=== PATIENT | female | born 1995 | race Caucasian/White ===

== ENCOUNTER 2020-10-07 17:42 | Inpatient (IN) | payer OTHER ==
[~2020-10-07] VITALS: Ht 162.6 cm; Wt 68.0 kg
[2020-10-07] MEDS ORDERED: METOCLOPRAMIDE 5 MG/ML, 2ML ONE (17:59)
[2020-10-07] MEDS ORDERED: DIPHENHYDRAMINE 50 MG/ML, 1ML ONE ×2 (17:59→23:45)
[2020-10-07] MEDS ORDERED: SODIUM CHLORIDE FLUSH 10ML SYR IVF ONE (18:00)
[2020-10-07] MEDS ORDERED: METOCLOPRAMIDE 5 MG/ML, 2ML IVPush ONE (18:00)
[2020-10-07] MEDS ORDERED: DIPHENHYDRAMINE 50 MG/ML, 1ML IVPush ONE (18:00)
[2020-10-07] MEDS ORDERED: SODIUM CHLORIDE 0.9% 1,000ML IVBOLUS ONE ×2 (18:00→23:00)
[2020-10-07 18:20] LABS: BASOPHILS % (AUTO) 1 % (0-1); EOSINOPHILS % (AUTO) 0 % (1-7); LYMPHOCYTES % (AUTO) 11 % (22-44); MEAN CORPUSCULAR HEMOGLOBIN 22.2 pg (27.0-34.8); MEAN CORPUSCULAR HGB CONC 31.3 g/dL (32.4-35.8); MEAN PLATELET VOLUME 7.7 fL (7.4-10.4); MONOCYTES % (AUTO) 7 % (2-9); NEUTROPHILS % (AUTO) 81 % (42-75); PLATELET COUNT 420 x10^3/uL (130-400); RED BLOOD COUNT 4.56 x10^6/uL (3.82-5.3); RED CELL DISTRIBUTION WIDTH 18.8 % (9.6-15.2)
[2020-10-07 18:22] LABS: ALBUMIN 3.5 g/dL (3.4-5.0); ANION GAP 8 mmol/L (5-15); CALCIUM 8.9 mg/dL (8.5-10.1); CHLORIDE 107 mmol/L (98-107); CREATININE 1.06 mg/dL (0.55-1.02)
[2020-10-07 18:27] LABS: INTERNATIONAL NORMALIZED RATIO 1.04 (0.93-1.1); PROTHROMBIN TIME 11.1 Seconds (9.6-11.5)
[2020-10-07] MEDS ORDERED: PLEASE ENTER HEIGHT AND WEIGHT MC SCH (18:30)
[2020-10-07] MEDS ORDERED: PLEASE ENTER ALLERGIES MC SCH (18:30)
[2020-10-07 18:56] LABS: ANISOCYTOSIS 1+; OVALOCYTES 1+
[2020-10-07 19:00] LABS: MICROCYTOSIS 2+
--- NOTE | 2020-10-07 19:00 | NUR ---
PT TRANSPORTED TO CT.
[2020-10-07 19:01] LABS: <PLATELET ESTIMATE> INCREASED; <PLT MORPHOLOGY> NORMAL PLT MORPH
[2020-10-07] MEDS ORDERED: KETOROLAC 30 MG/1 ML ONE (20:15)
--- NOTE | 2020-10-07 20:21 | NUR ---
MEDICATED PER MAR. PT STATES SHE FEELS BETTER BUT HEAD STILL HURTS. VSS. PT'S DAD AT BEDSIDE.
[2020-10-07] MEDS ORDERED: KETOROLAC 30 MG/1 ML IVPush ONE (20:30)
[2020-10-07] MEDS ORDERED: DEXAMETHASONE 4 MG/ML, 1ML IVPush ONE (21:30)
--- NOTE | 2020-10-07 22:01 | NUR ---
ASSISTED PT TO [facility].
--- NOTE | 2020-10-07 22:17 | NUR ---
PT TRANSPORTED TO CT.
[2020-10-07] MEDS ORDERED: OMNIPAQUE 350 MG/ML, 75ML BOTTLE ONE (22:32)
--- NOTE | 2020-10-07 22:43 | NUR ---
PT SLEEPING IN NAD, EVEN AND UNLABORED RESPIRATIONS NOTED. VSS.
--- NOTE | 2020-10-07 23:06 | NUR ---
REPORT TO ANAHI MARRUFO.
[2020-10-07] MEDS ORDERED: DEXAMETHASONE 4 MG/ML, 1ML ONE (23:12)
[2020-10-07] MEDS ORDERED: SODIUM CHLORIDE FLUSH 10ML SYR IVF PRN (23:30)
[2020-10-08] MEDS ORDERED: DIPHENHYDRAMINE 50 MG/ML, 1ML IVPush ONE
[2020-10-08] MEDS ORDERED: DOCUSATE 100 MG CAPSULE PO PRN (00:30)
[2020-10-08] MEDS ORDERED: MAGNESIUM SULFATE PMX 2GM/50ML 50 ML IV ONE (00:30)
--- NOTE | 2020-10-08 00:45 | NUR ---
ATTEMPTED TO AMBULATE PT TO COMMODE. PT LEGS VERY WEAK. PT ASSISTED BACK TO [facility]
[2020-10-08 01:27] VITALS: BP 116/74
[2020-10-08 04:09] LABS: BASOPHILS % (AUTO) 0 % (0-1); EOSINOPHILS % (AUTO) 0 % (1-7); LYMPHOCYTES % (AUTO) 5 % (22-44); MEAN CORPUSCULAR HEMOGLOBIN 22.3 pg (27.0-34.8); MEAN CORPUSCULAR HGB CONC 31.2 g/dL (32.4-35.8); MEAN PLATELET VOLUME 7.5 fL (7.4-10.4); MONOCYTES % (AUTO) 1 % (2-9); NEUTROPHILS % (AUTO) 94 % (42-75); PLATELET COUNT 351 x10^3/uL (130-400); RED BLOOD COUNT 4.47 x10^6/uL (3.82-5.3); RED CELL DISTRIBUTION WIDTH 18.9 % (9.6-15.2)
[2020-10-08 04:20] LABS: ANION GAP 9 mmol/L (5-15); CALCIUM 8.7 mg/dL (8.5-10.1); CHLORIDE 107 mmol/L (98-107); CREATININE 1.07 mg/dL (0.55-1.02)
[2020-10-08] MEDS ORDERED: DIPHENHYDRAMINE 50 MG/ML, 1ML IVPush PRN (04:30)
[2020-10-08 08:02] LABS: MICROSCOPIC NOT IND
[2020-10-08 08:09] LABS: AMPHETAMINE SCREEN, URINE Negative (Negative); BARBITURATE SCREEN, URINE Negative (Negative); BENZODIAZEPINE SCREEN, URINE Negative (Negative); CANNABINOID SCREEN, URINE Positive (Negative); COCAINE SCREEN, URINE Negative (Negative); METHADONE SCREEN, URINE Negative (Negative); OPIATE SCREEN, URINE Negative (Negative)
[2020-10-08] MEDS: KETOROLAC 30 MG/1 ML IV PRN ×2 (09:27→17:04)
[2020-10-08] MEDS: DEXAMETHASONE 4 MG TABLET PO SCH ×3 (09:27→20:43)
[2020-10-08] MEDS ORDERED: VALPROATE SODIUM 1,000 MG in DEXTROSE 5% 100 ML IV ONE (10:00)
[2020-10-08 14:36] VITALS: BP 113/74
[2020-10-08] MEDS ORDERED: GADOTERATE 7.5 MMOL/15ML SYR ONE (18:25)
[2020-10-08 20:22] VITALS: BP 114/72
[2020-10-08] MEDS: VALPROATE SODIUM 500 MG in DEXTROSE 5% 100 ML IV SCH (21:28)
[2020-10-09 02:00] VITALS: BP 118/78
[2020-10-09] MEDS: DEXAMETHASONE 4 MG TABLET PO SCH ×2 (03:17→09:01)
[2020-10-09 05:01] LABS: BASOPHILS % (AUTO) 0 % (0-1); EOSINOPHILS % (AUTO) 0 % (1-7); LYMPHOCYTES % (AUTO) 4 % (22-44); MEAN CORPUSCULAR HEMOGLOBIN 22.3 pg (27.0-34.8); MEAN CORPUSCULAR HGB CONC 31.4 g/dL (32.4-35.8); MEAN PLATELET VOLUME 7.8 fL (7.4-10.4); MONOCYTES % (AUTO) 3 % (2-9); NEUTROPHILS % (AUTO) 93 % (42-75); PLATELET COUNT 394 x10^3/uL (130-400); RED CELL DISTRIBUTION WIDTH 18.9 % (9.6-15.2)
[2020-10-09 05:17] LABS: CHLORIDE 106 mmol/L (98-107)
[2020-10-09 05:26] LABS: ALANINE AMINOTRANSFERASE 15 U/L (12-78); ALKALINE PHOSPHATASE 96 U/L (45-117); ANION GAP 8 mmol/L (5-15); BILIRUBIN,TOTAL 0.6 mg/dL (0.2-1.0); C-REACTIVE PROTEIN, QUANT 0.07 mg/dL (0.02-0.49); CALCIUM 8.8 mg/dL (8.5-10.1); CREATININE 0.87 mg/dL (0.55-1.02); TOTAL PROTEIN 7.1 g/dL (6.4-8.2)
[2020-10-09] MEDS: PANTOPRAZOLE 40MG TABLET PO SCH (05:38)
[2020-10-09] MEDS ORDERED: ASPIRIN 325 MG TABLET PO SCH (09:00)
[2020-10-09] MEDS: SODIUM CHLORIDE 0.9% 1,000 ML IV SCH ×2 (09:02→18:00)
[2020-10-09] MEDS: VALPROATE SODIUM 500 MG in DEXTROSE 5% 100 ML IV SCH ×2 (09:02→22:45)
[2020-10-09 10:46] VITALS: BP 107/73
[2020-10-09] MEDS ORDERED: GADOTERATE 7.5 MMOL/15 ML VIAL ONE (12:03)
[2020-10-09 15:39] VITALS: BP 117/73
[2020-10-09 16:55] VITALS: BP 115/74
[2020-10-09 19:46] VITALS: BP 109/70
[2020-10-09 20:00] VITALS: BP 115/70
[2020-10-10] VITALS (12 sets, daily range): BP systolic 11–118; BP diastolic 68–85
[2020-10-10] MEDS: ASPIRIN 81 MG TABLET EC PO SCH (04:42)
[2020-10-10] MEDS: PANTOPRAZOLE 40MG TABLET PO SCH (04:42)
[2020-10-10] MEDS: SODIUM CHLORIDE 0.9% 1,000 ML IV SCH ×2 (04:42→15:59)
[2020-10-10 06:05] LABS: BASOPHILS % (AUTO) 0 % (0-1); EOSINOPHILS % (AUTO) 0 % (1-7); LYMPHOCYTES % (AUTO) 11 % (22-44); MEAN CORPUSCULAR HEMOGLOBIN 22.2 pg (27.0-34.8); MEAN CORPUSCULAR HGB CONC 30.9 g/dL (32.4-35.8); MEAN PLATELET VOLUME 7.7 fL (7.4-10.4); MONOCYTES % (AUTO) 7 % (2-9); NEUTROPHILS % (AUTO) 82 % (42-75); PLATELET COUNT 291 x10^3/uL (130-400); RED BLOOD COUNT 4.06 x10^6/uL (3.82-5.3); RED CELL DISTRIBUTION WIDTH 18.7 % (9.6-15.2)
[2020-10-10 06:06] LABS: HCT (SEDRATE) 28.6 % (34.6-47.8)
[2020-10-10 06:18] LABS: ANION GAP 5 mmol/L (5-15); CALCIUM 8.4 mg/dL (8.5-10.1); CHLORIDE 105 mmol/L (98-107)
[2020-10-10 06:31] LABS: CHOL/HDL RATIO 2.3; CHOLESTEROL, TOTAL 156 mg/dL (140-239); CREATININE 0.81 mg/dL (0.55-1.02); HDL CHOL % 43 % (28-40); HDL CHOLESTEROL (DIRECT) 67 mg/dL (40-60); LDL CHOLESTEROL,CALCULATED 71 mg/dL (54-169); LDL/HDL RATIO 1.1 (0.5-3.0); TRIGLYCERIDES 88 mg/dL (50-200); VLDL CHOLESTEROL 18 mg/dL (0-25)
[2020-10-10] MEDS: CLOPIDOGREL 75 MG TABLET PO SCH (08:50)
[2020-10-10] MEDS: ACETAMINOPHEN 325 MG TABLET PO PRN (08:51)
[2020-10-10] MEDS: VALPROATE SODIUM 500 MG in DEXTROSE 5% 100 ML IV SCH ×2 (10:02→20:15)
[2020-10-10] MEDS: ATORVASTATIN 20 MG TABLET PO SCH (20:15)
[2020-10-11] VITALS (10 sets, daily range): BP systolic 106–123; BP diastolic 68–86
[2020-10-11] MEDS: SODIUM CHLORIDE 0.9% 1,000 ML IV SCH ×3 (01:08→23:28)
[2020-10-11] MEDS: ASPIRIN 81 MG TABLET EC PO SCH (05:29)
[2020-10-11] MEDS: PANTOPRAZOLE 40MG TABLET PO SCH (05:29)
[2020-10-11 08:33] LABS: BASOPHILS % (AUTO) 0 % (0-1); EOSINOPHILS % (AUTO) 1 % (1-7); LYMPHOCYTES % (AUTO) 29 % (22-44); MEAN CORPUSCULAR HEMOGLOBIN 22.7 pg (27.0-34.8); MEAN CORPUSCULAR HGB CONC 31.7 g/dL (32.4-35.8); MEAN PLATELET VOLUME 7.8 fL (7.4-10.4); MONOCYTES % (AUTO) 10 % (2-9); NEUTROPHILS % (AUTO) 60 % (42-75); PLATELET COUNT 295 x10^3/uL (130-400); RED BLOOD COUNT 4.27 x10^6/uL (3.82-5.3)
[2020-10-11 08:34] LABS: ANION GAP 5 mmol/L (5-15); CHLORIDE 106 mmol/L (98-107); CREATININE 0.78 mg/dL (0.55-1.02)
[2020-10-11 08:37] LABS: CALCIUM 8.3 mg/dL (8.5-10.1)
[2020-10-11] MEDS: CLOPIDOGREL 75 MG TABLET PO SCH (08:47)
[2020-10-11] MEDS: VALPROATE SODIUM 500 MG in DEXTROSE 5% 100 ML IV SCH ×2 (08:48→20:22)
[2020-10-11] MEDS: ACETAMINOPHEN 325 MG TABLET PO PRN ×2 (12:24→20:51)
[2020-10-11] MEDS: ATORVASTATIN 20 MG TABLET PO SCH (20:22)
[2020-10-11] MEDS: MELATONIN 5 MG TABLET PO PRN (20:51)
[2020-10-12] VITALS: BP 107/73
[2020-10-12 04:00] VITALS: BP 111/71
[2020-10-12] MEDS: PANTOPRAZOLE 40MG TABLET PO SCH (05:44)
[2020-10-12] MEDS: ASPIRIN 81 MG TABLET EC PO SCH (05:44)
[2020-10-12] MEDS: SODIUM CHLORIDE 0.9% 1,000 ML IV SCH ×2 (05:55→20:25)
[2020-10-12 06:44] VITALS: BP 106/71
[2020-10-12] MEDS: VALPROATE SODIUM 500 MG in DEXTROSE 5% 100 ML IV SCH ×2 (09:46→20:25)
[2020-10-12] MEDS: CLOPIDOGREL 75 MG TABLET PO SCH (09:46)
[2020-10-12] MEDS: ACETAMINOPHEN 325 MG TABLET PO PRN (09:55)
[2020-10-12 18:47] VITALS: BP 126/85
[2020-10-12 20:00] VITALS: BP 126/85
[2020-10-12] MEDS: ATORVASTATIN 20 MG TABLET PO SCH (20:24)
[2020-10-13] VITALS (8 sets, daily range): BP systolic 102–119; BP diastolic 68–82
[2020-10-13] MEDS: MELATONIN 5 MG TABLET PO PRN ×2 (01:10→20:43)
[2020-10-13] MEDS: ACETAMINOPHEN 325 MG TABLET PO PRN (01:11)
[2020-10-13] MEDS: ASPIRIN 81 MG TABLET EC PO SCH (05:18)
[2020-10-13] MEDS: PANTOPRAZOLE 40MG TABLET PO SCH (05:18)
[2020-10-13] MEDS: SODIUM CHLORIDE 0.9% 1,000 ML IV SCH ×2 (05:19→20:45)
[2020-10-13] MEDS: CLOPIDOGREL 75 MG TABLET PO SCH (09:15)
[2020-10-13] MEDS: VALPROATE SODIUM 500 MG in DEXTROSE 5% 100 ML IV SCH ×2 (09:15→20:43)
[2020-10-13] MEDS: ATORVASTATIN 20 MG TABLET PO SCH (20:43)
[2020-10-14] VITALS (8 sets, daily range): BP systolic 107–125; BP diastolic 71–82
[2020-10-14] MEDS: PANTOPRAZOLE 40MG TABLET PO SCH (06:00)
[2020-10-14] MEDS: ASPIRIN 81 MG TABLET EC PO SCH (06:00)
[2020-10-14] MEDS: SODIUM CHLORIDE 0.9% 1,000 ML IV SCH ×2 (06:01→18:02)
[2020-10-14] MEDS: VALPROATE SODIUM 500 MG in DEXTROSE 5% 100 ML IV SCH (10:40)
[2020-10-14] MEDS: ACETAMINOPHEN 325 MG TABLET PO PRN (10:40)
[2020-10-14] MEDS: CLOPIDOGREL 75 MG TABLET PO SCH (10:40)
[2020-10-14] MEDS: DIVALPROEX 500 MG TABLET.DR PO SCH (18:45)
[2020-10-14] MEDS: ATORVASTATIN 20 MG TABLET PO SCH (21:33)
[2020-10-14] MEDS: MELATONIN 5 MG TABLET PO PRN (21:33)
[2020-10-15] VITALS: BP 126/89
[2020-10-15 04:22] VITALS: BP 107/66
[2020-10-15] MEDS: PANTOPRAZOLE 40MG TABLET PO SCH (06:30)
[2020-10-15] MEDS: ASPIRIN 81 MG TABLET EC PO SCH (06:30)
[2020-10-15] MEDS: SODIUM CHLORIDE 0.9% 1,000 ML IV SCH ×2 (08:29→21:37)
[2020-10-15] MEDS: DIVALPROEX 500 MG TABLET.DR PO SCH ×2 (08:29→20:53)
[2020-10-15] MEDS: CLOPIDOGREL 75 MG TABLET PO SCH (08:29)
[2020-10-15 08:52] VITALS: BP 113/79
[2020-10-15 13:11] VITALS: BP 123/79
[2020-10-15 16:23] VITALS: BP 115/79
[2020-10-15 19:26] VITALS: BP 114/76
[2020-10-15] MEDS: ATORVASTATIN 20 MG TABLET PO SCH (20:53)
[2020-10-16 00:02] VITALS: BP 130/76
[2020-10-16 04:25] VITALS: BP 106/71
[2020-10-16] MEDS: ASPIRIN 81 MG TABLET EC PO SCH (06:06)
[2020-10-16] MEDS: PANTOPRAZOLE 40MG TABLET PO SCH (06:06)
[2020-10-16 08:39] LABS: BASOPHILS % (AUTO) 1 % (0-1); EOSINOPHILS % (AUTO) 2 % (1-7); LYMPHOCYTES % (AUTO) 23 % (22-44); MEAN CORPUSCULAR HEMOGLOBIN 22.5 pg (27.0-34.8); MEAN CORPUSCULAR HGB CONC 31.4 g/dL (32.4-35.8); MEAN PLATELET VOLUME 7.9 fL (7.4-10.4); MONOCYTES % (AUTO) 11 % (2-9); NEUTROPHILS % (AUTO) 63 % (42-75); PLATELET COUNT 245 x10^3/uL (130-400); RED BLOOD COUNT 4.27 x10^6/uL (3.82-5.3)
[2020-10-16 08:45] LABS: ALBUMIN 3.1 g/dL (3.4-5.0); ANION GAP 5 mmol/L (5-15); CALCIUM 9.1 mg/dL (8.5-10.1); CHLORIDE 108 mmol/L (98-107); CREATININE 0.84 mg/dL (0.55-1.02)
[2020-10-16 09:43] VITALS: BP 110/74
[2020-10-16] MEDS: CLOPIDOGREL 75 MG TABLET PO SCH (10:10)
[2020-10-16] MEDS: DIVALPROEX 500 MG TABLET.DR PO SCH ×2 (10:10→18:34)
[2020-10-16] MEDS ORDERED: ASPI81TA45 PO (11:21)
[2020-10-16] MEDS ORDERED: CLOP75TA PO ×3 (11:21→11:54)
[2020-10-16] MEDS ORDERED: DIVA-61 PO (11:21)
[2020-10-16] MEDS ORDERED: ATOR20TA37 PO (11:21)
[2020-10-16] MEDS ORDERED: PANT40TA6 PO (11:21)
[2020-10-16] MEDS ORDERED: NIMO30CA3 PO (11:21)
[2020-10-16] MEDS: SODIUM CHLORIDE 0.9% 1,000 ML IV SCH (11:40)
[2020-10-16 12:23] VITALS: BP 119/82
[2020-10-16 15:59] VITALS: BP 122/78
[2020-10-16 19:50] VITALS: BP 128/75
[2020-10-16] MEDS: ATORVASTATIN 20 MG TABLET PO SCH (20:01)
[2020-10-17 00:23] VITALS: BP 108/76
[2020-10-17] MEDS: SODIUM CHLORIDE 0.9% 1,000 ML IV SCH ×2 (00:52→14:38)
[2020-10-17 04:31] VITALS: BP 100/67
[2020-10-17] MEDS: PANTOPRAZOLE 40MG TABLET PO SCH (06:14)
[2020-10-17] MEDS: ASPIRIN 81 MG TABLET EC PO SCH (06:14)
[2020-10-17] MEDS: DIVALPROEX 500 MG TABLET.DR PO SCH ×2 (08:01→20:51)
[2020-10-17 08:24] LABS: ANION GAP 6 mmol/L (5-15); CALCIUM 8.8 mg/dL (8.5-10.1); CHLORIDE 108 mmol/L (98-107)
[2020-10-17 08:25] LABS: CREATININE 0.84 mg/dL (0.55-1.02)
[2020-10-17 08:29] LABS: BASOPHILS % (AUTO) 1 % (0-1); EOSINOPHILS % (AUTO) 3 % (1-7); LYMPHOCYTES % (AUTO) 24 % (22-44); MEAN CORPUSCULAR HEMOGLOBIN 22.8 pg (27.0-34.8); MEAN CORPUSCULAR HGB CONC 31.5 g/dL (32.4-35.8); MEAN PLATELET VOLUME 8.4 fL (7.4-10.4); MONOCYTES % (AUTO) 12 % (2-9); NEUTROPHILS % (AUTO) 60 % (42-75); PLATELET COUNT 239 x10^3/uL (130-400); RED BLOOD COUNT 4.28 x10^6/uL (3.82-5.3); RED CELL DISTRIBUTION WIDTH 19.3 % (9.6-15.2)
[2020-10-17 08:40] VITALS: BP 98/63
[2020-10-17] MEDS ORDERED: PROPOFOL 10 MG/ML, 20ML ONE (09:50)
[2020-10-17 12:44] VITALS: BP 126/85
[2020-10-17 14:15] VITALS: BP 114/80
[2020-10-17] MEDS: CLOPIDOGREL 75 MG TABLET PO SCH (14:38)
[2020-10-17 19:37] VITALS: BP 130/84
[2020-10-17] MEDS: ATORVASTATIN 20 MG TABLET PO SCH (20:51)
[2020-10-17] MEDS: ACETAMINOPHEN 325 MG TABLET PO PRN (20:51)
[2020-10-18] VITALS: BP 110/74
[2020-10-18] MEDS: SODIUM CHLORIDE 0.9% 1,000 ML IV SCH ×2 (02:53→16:54)
[2020-10-18 04:01] VITALS: BP 102/58
[2020-10-18] MEDS: PANTOPRAZOLE 40MG TABLET PO SCH (05:13)
[2020-10-18] MEDS: ASPIRIN 81 MG TABLET EC PO SCH (05:13)
[2020-10-18 08:26] VITALS: BP 119/82
[2020-10-18] MEDS: DIVALPROEX 500 MG TABLET.DR PO SCH ×2 (08:30→19:59)
[2020-10-18] MEDS: CLOPIDOGREL 75 MG TABLET PO SCH (08:30)
[2020-10-18 12:50] VITALS: BP 111/74
[2020-10-18 20:08] VITALS: BP 117/79
[2020-10-18] MEDS: ATORVASTATIN 20 MG TABLET PO SCH (20:50)
[2020-10-19 02:03] VITALS: BP 117/80
[2020-10-19] MEDS: PANTOPRAZOLE 40MG TABLET PO SCH (05:47)
[2020-10-19] MEDS: ASPIRIN 81 MG TABLET EC PO SCH (05:48)
[2020-10-19 06:20] LABS: BASOPHILS % (AUTO) 1 % (0-1); EOSINOPHILS % (AUTO) 1 % (1-7); LYMPHOCYTES % (AUTO) 17 % (22-44); MEAN CORPUSCULAR HEMOGLOBIN 22.9 pg (27.0-34.8); MEAN CORPUSCULAR HGB CONC 31.7 g/dL (32.4-35.8); MEAN PLATELET VOLUME 8.4 fL (7.4-10.4); MONOCYTES % (AUTO) 11 % (2-9); NEUTROPHILS % (AUTO) 70 % (42-75); PLATELET COUNT 255 x10^3/uL (130-400); RED BLOOD COUNT 4.39 x10^6/uL (3.82-5.3); RED CELL DISTRIBUTION WIDTH 19.5 % (9.6-15.2)
[2020-10-19 08:35] VITALS: BP 105/68
[2020-10-19] MEDS: CLOPIDOGREL 75 MG TABLET PO SCH (08:36)
[2020-10-19] MEDS: IRON SUCROSE COMPLEX 100MG/5ML IV SCH (08:36)
[2020-10-19] MEDS: DIVALPROEX 500 MG TABLET.DR PO SCH ×2 (08:36→20:54)
[2020-10-19 13:15] VITALS: BP 105/71
[2020-10-19 16:47] VITALS: BP 106/71
[2020-10-19 20:00] VITALS: BP 104/72
[2020-10-19] MEDS: ATORVASTATIN 20 MG TABLET PO SCH (20:54)
[2020-10-20 01:45] VITALS: BP 109/74
[2020-10-20 04:12] VITALS: BP 102/68
[2020-10-20] MEDS: ASPIRIN 81 MG TABLET EC PO SCH (06:19)
[2020-10-20] MEDS: PANTOPRAZOLE 40MG TABLET PO SCH (06:19)
[2020-10-20 08:10] VITALS: BP 118/82
[2020-10-20] MEDS: CLOPIDOGREL 75 MG TABLET PO SCH (08:11)
[2020-10-20] MEDS: IRON SUCROSE COMPLEX 100MG/5ML IV SCH (08:11)
[2020-10-20] MEDS: DIVALPROEX 500 MG TABLET.DR PO SCH ×2 (08:11→20:35)
[2020-10-20 14:25] VITALS: BP 120/78
[2020-10-20 20:27] VITALS: BP 107/69
[2020-10-20] MEDS: ATORVASTATIN 20 MG TABLET PO SCH (20:35)
[2020-10-21 03:50] VITALS: BP 98/73
[2020-10-21] MEDS: ASPIRIN 81 MG TABLET EC PO SCH (05:54)
[2020-10-21] MEDS: PANTOPRAZOLE 40MG TABLET PO SCH (05:55)
[2020-10-21 08:47] VITALS: BP 103/68
[2020-10-21] MEDS: DIVALPROEX 500 MG TABLET.DR PO SCH ×2 (10:02→20:04)
[2020-10-21] MEDS: IRON SUCROSE COMPLEX 100MG/5ML IV SCH (10:02)
[2020-10-21] MEDS: CLOPIDOGREL 75 MG TABLET PO SCH (10:02)
[2020-10-21 14:04] VITALS: BP 111/73
[2020-10-21] MEDS: ATORVASTATIN 20 MG TABLET PO SCH (20:04)
[2020-10-21 20:07] VITALS: BP 107/82
[2020-10-22 02:00] VITALS: BP 102/68
[2020-10-22] MEDS: ASPIRIN 81 MG TABLET EC PO SCH (05:17)
[2020-10-22] MEDS: PANTOPRAZOLE 40MG TABLET PO SCH (05:17)
[2020-10-22 08:39] VITALS: BP 109/74
[2020-10-22] MEDS: DIVALPROEX 500 MG TABLET.DR PO SCH ×2 (09:40→19:51)
[2020-10-22] MEDS: CLOPIDOGREL 75 MG TABLET PO SCH (09:40)
[2020-10-22 14:39] VITALS: BP 105/69
[2020-10-22 19:37] VITALS: BP 114/81
[2020-10-22] MEDS: ATORVASTATIN 20 MG TABLET PO SCH (19:51)
[2020-10-23 01:14] VITALS: BP 99/68
[2020-10-23] MEDS: ASPIRIN 81 MG TABLET EC PO SCH (05:14)
[2020-10-23] MEDS: PANTOPRAZOLE 40MG TABLET PO SCH (05:14)
[2020-10-23 07:52] VITALS: BP 96/63
[2020-10-23] MEDS: CLOPIDOGREL 75 MG TABLET PO SCH (08:00)
[2020-10-23] MEDS: FERROUS SULFATE 325 MG TABLET PO SCH (08:00)
[2020-10-23] MEDS: DIVALPROEX 500 MG TABLET.DR PO SCH ×2 (08:00→20:23)
[2020-10-23 13:37] VITALS: BP 99/66
[2020-10-23 20:21] VITALS: BP 111/78
[2020-10-23] MEDS: ATORVASTATIN 20 MG TABLET PO SCH (20:23)
[2020-10-24 00:45] VITALS: BP 114/78
[2020-10-24] MEDS: PANTOPRAZOLE 40MG TABLET PO SCH (05:42)
[2020-10-24] MEDS: ASPIRIN 81 MG TABLET EC PO SCH (05:45)
[2020-10-24 08:12] VITALS: BP 101/70
[2020-10-24] MEDS: DIVALPROEX 500 MG TABLET.DR PO SCH ×2 (08:14→20:33)
[2020-10-24] MEDS: CLOPIDOGREL 75 MG TABLET PO SCH (08:14)
[2020-10-24 12:53] VITALS: BP 119/78
[2020-10-24 19:49] VITALS: BP 110/74
[2020-10-24] MEDS: ATORVASTATIN 20 MG TABLET PO SCH (20:33)
[2020-10-25 01:14] VITALS: BP 109/67
[2020-10-25] MEDS: ASPIRIN 81 MG TABLET EC PO SCH (05:44)
[2020-10-25] MEDS: PANTOPRAZOLE 40MG TABLET PO SCH (05:44)
[2020-10-25 07:38] VITALS: BP 100/68
[2020-10-25] MEDS: CLOPIDOGREL 75 MG TABLET PO SCH (08:37)
[2020-10-25] MEDS: FERROUS SULFATE 325 MG TABLET PO SCH (08:37)
[2020-10-25] MEDS: DIVALPROEX 500 MG TABLET.DR PO SCH (08:37)
== END 2020-10-25 11:28 | DRG 64 ==
LOC: ED 21:52 → EDIP 23:54 → 4EST 10-08 01:14
PROVIDERS: ADMIT Internal Medicine; ATTEND Family Medicine
PROC: B24BZZ4 Ultrasonography of Heart with Aorta, Transesophageal (ICD-10-PCS; principal; 2020-10-17 12:30)
DX: I63.40 Cerebral infarction due to embolism of unspecified cerebral artery (principal); U07.1 COVID-19; D68.69 Other thrombophilia; I67.841 Reversible cerebrovascular vasoconstriction syndrome; I67.848 Other cerebrovascular vasospasm and vasoconstriction; G43.109 Migraine with aura, not intractable, without status migrainosus; E86.0 Dehydration; F12.90 Cannabis use, unspecified, uncomplicated; F17.210 Nicotine dependence, cigarettes, uncomplicated; H40.9 Unspecified glaucoma; F17.200 Nicotine dependence, unspecified, uncomplicated; D50.9 Iron deficiency anemia, unspecified; J45.909 Unspecified asthma, uncomplicated; Z79.02 Long term (current) use of antithrombotics/antiplatelets; Z79.82 Long term (current) use of aspirin; Z79.899 Other long term (current) drug therapy; Z71.6 Tobacco abuse counseling
CPT/HCPCS: 36415; 70450; 70460; 70546; 70553; 80048; 80053; 80061; 80069; 80307; 81003; 82040; 82728; 83540; 83550; 83735; 84100; 84443; 84702; 85025; 85301; 85302; 85303; 85305; 85306; 85307; 85610; 85613; 85651; 85670; 85705; 85730; 85732; 86140; 87635; 93005; 93306; 93312; 93325; 93880; 96361; 96374; 96375; G0378; J1100; J1756; J1885; J2704; Q9967; U0005; A9575; J1200; J2765; J3475; J7030; U0003